=== PATIENT | male | born 2000 | race Hispanic/Latino ===

== ENCOUNTER 2021-07-22 12:57 | Emergency (ER) | payer OTHER ==
[~2021-07-22] VITALS: Ht 165.1 cm; Wt 61.2 kg
[2021-07-22] MEDS ORDERED: AZITHROMYCIN 250 MG TABLET PO ONE (13:30)
[2021-07-22] MEDS ORDERED: CEFTRIAXONE 1G VIAL IM ONE (13:30)
[2021-07-22] MEDS ORDERED: LIDOCAINE HCL MPF 1% 5ML VIAL ONE (13:37)
[2021-07-22] MEDS ORDERED: IBUP-2070 PO (14:02)
[2021-07-22 14:21] VITALS: BP 117/60
== END 2021-07-22 14:22 | disposition home or self-care (01) ==
LOC: EDH 12:57
DX: J02.9 Acute pharyngitis, unspecified (principal); Z79.1 Long term (current) use of non-steroidal anti-inflammatories (NSAID)
CPT/HCPCS: 36415; 87491; 87591; 87804 ×2; 87880; 96372; 99283; J0696; J3490